=== PATIENT | female | born 1975 | race Caucasian/White ===

== ENCOUNTER 2018-10-29 19:12 | Emergency (ER) | payer MEDICAID, OTHER ==
[~2018-10-29] VITALS: Ht 167.6 cm; Wt 70.3 kg
--- NOTE | 2018-10-29 19:16 | NUR ---
PT AMBULATED TO ER BED 11
[2018-10-29 19:18] VITALS: BP 127/95
--- NOTE | 2018-10-29 19:24 | NUR ---
42 y/o F presented to ED wt c/o BLE numbness and tingling. AAOx4. Per pt, " my legs feel heavy and I can barely move them.". Able to move BLE extremties and feel touch sensation. denies pain. ERMD notified. Will continue to monitor.
[2018-10-29] MEDS ORDERED: NACL 0.9% 500 ML IV ONE (20:31)
[2018-10-29 20:55] LABS: BASOPHILS % (AUTO) 0.2 % (0.0-2.0); EOSINOPHILS % (AUTO) 0.2 % (0.0-4.0); HEMATOCRIT 37.8 % (36-48); HEMOGLOBIN 12.4 g/dL (12.0-16.0); LYMPHOCYTES % (AUTO) 28.1 % (20.5-51.1); MEAN CORPUSCULAR HEMOGLOBIN 30 pg (27-31); MEAN CORPUSCULAR HGB CONC 33 g/dL (33-37); MONOCYTES # (AUTO) 0.7 K/uL (0.8-1.0); MONOCYTES % (AUTO) 9.4 % (1.7-9.3); NEUTROPHILS # (AUTO) 4.4 K/uL (1.8-7.7); NEUTROPHILS % (AUTO) 62.1 % (42.2-75.2); PLATELET COUNT (AUTO) 259 K/uL (140-450); RED CELL DISTRIBUTION WIDTH 14.4 % (11.6-13.7); WHITE BLOOD COUNT (AUTO) 7.1 K/uL (4.8-10.8)
--- NOTE | 2018-10-29 21:05 | NUR ---
pt asleep. visible chest and fall. will continue to monitor.
[2018-10-29 21:14] LABS: ALBUMIN 3.4 g/dL (3.4-5.0); ANION GAP 9.5 (8-16); CARBON DIOXIDE 29.9 mmol/L (21-32); CREATININE 0.8 mg/dL (0.6-1.3); POTASSIUM 3.4 mmol/L (3.5-5.1)
[2018-10-29 21:29] LABS: TOTAL BILIRUBIN 0.1 mg/dL (0.0-1.0)
[2018-10-29 21:48] LABS: APPEARANCE,URINE CLEAR (CLEAR); BILIRUBIN,URINE NEGATIVE (NEGATIVE); BLOOD, URINE NEGATIVE (NEGATIVE); COLOR,URINE YELLOW (YELLOW); LEUKOCYTE ESTERASE ,URINE NEGATIVE (NEGATIVE); NITRITE, URINE NEGATIVE (NEGATIVE); UGLUCOSE NEGATIVE (NEGATIVE)
--- NOTE | 2018-10-29 23:05 | NUR ---
Pt asleep, chest rise and fall noted. VSS. Will continue to monitor.
--- NOTE | 2018-10-30 02:22 | NUR ---
Pt asleep. VSS. Will continue to monitor.
[2018-10-30 05:07] VITALS: BP 101/60
--- NOTE | 2018-10-30 05:07 | NUR ---
Patient discharged with v/s stable. Written and verbal after care instructions given and explained. Patient verbalized understanding. Ambulatory with steady gait. All questions addressed prior to discharge. Advised to follow up with PMD.
== END 2018-10-30 05:07 | disposition home or self-care (01) ==
LOC: MED 19:12
DX: R20.0 Anesthesia of skin (principal); Z59.0 Homelessness
CPT/HCPCS: 36415; 71045; 80053; 81003; 81025; 85025; 99284; J7030

== ENCOUNTER 2019-01-14 12:22 | Emergency (ER) | payer MEDICAID ==
[~2019-01-14] VITALS: Ht 167.6 cm; Wt 67.8 kg
--- NOTE | 2019-01-14 12:30 | NUR ---
CALLED PT NAME IN ER LOBBY, NO RESPONE, PT OUTSIDE ER LOBBY ARGUING WITH FRIEND AND SHE DOES NOT RESPOND TO ME WHEN I CALL HER NAME. WILL CALL PT AGAIN AT LATER TIME.
--- NOTE | 2019-01-14 12:38 | NUR ---
PT IS OUTSIDE OF ER LOBBY AT THIS TIME AND STATES THAT SHE DOES NOT WANT TO COME IN UNLESS HER FAMILY COMES WITH HER, HER FAMILY MEMBER STATES THAT HE DOES NOT WANT TO COME IN WITH HER. PT DOES NOT WANT TO BE SEEN AT THIS TIME.
[2019-01-14 13:00] VITALS: BP 152/101
--- NOTE | 2019-01-14 13:18 | NUR ---
DR ROMAN AT BEDSIDE FOR PT EVALUATION
--- NOTE | 2019-01-14 13:18 | NUR ---
43 Y FEMALE BIB FRIEND C/O EYE REDNESS X4 DAYS AND LT KNEE PAIN X7 YEARS. PT REPORTS SHE THINKS EYE REDNESS IS FROM LIVING ON [address] AND BEING UNABLE TO WASH HANDS. PT REPORTS KNEE PAIN IS INCREASING AND IT HAS STARTED TO LOCK AND SHE IS UNABLE TO MOVE WHEN KNEE LOCKS. +ROM. +CAP REFILL >3 SECONDS. PALPABLE PEDAL PULSES. PT DENIES PAIN AT THIS TIME. BP 152/101. PT AA0X4. PT VISABLY CRYING DURING DR MARQUEZ ASSESSMENT. BED IS DOWN, LOCKED, BED RAIL X 1. MEDHX:MENISCUS TEAR RX:DENIES
--- NOTE | 2019-01-14 13:25 | NUR ---
PT AMB TO RESTROOM WITH STEADY GAIT
[2019-01-14 13:40] LABS: APPEARANCE,URINE SL CLOUDY (CLEAR); BILIRUBIN,URINE NEGATIVE (NEGATIVE); BLOOD, URINE NEGATIVE (NEGATIVE); COLOR,URINE YELLOW (YELLOW); LEUKOCYTE ESTERASE ,URINE NEGATIVE (NEGATIVE); NITRITE, URINE NEGATIVE (NEGATIVE); UGLUCOSE NEGATIVE (NEGATIVE)
[2019-01-14 13:42] LABS: BASOPHILS % (AUTO) 0.4 % (0.0-2.0); EOSINOPHILS % (AUTO) 0.3 % (0.0-4.0); HEMATOCRIT 41.3 % (36-48); HEMOGLOBIN 13.5 g/dL (12.0-16.0); LYMPHOCYTES # (AUTO) 1.9 K/uL (2.5-16.5); LYMPHOCYTES % (AUTO) 29.1 % (20.5-51.1); MEAN CORPUSCULAR HEMOGLOBIN 30 pg (27-31); MEAN CORPUSCULAR HGB CONC 33 g/dL (33-37); MEAN CORPUSCULAR VOLUME 92.5 fL (80-94); MONOCYTES # (AUTO) 0.6 K/uL (0.8-1.0); MONOCYTES % (AUTO) 9.2 % (1.7-9.3); NEUTROPHILS # (AUTO) 3.9 K/uL (1.8-7.7); PLATELET COUNT (AUTO) 313 K/uL (140-450); RED BLOOD CELL COUNT(AUTO) 4.46 MIL/uL (4.20-5.40); WHITE BLOOD COUNT (AUTO) 6.4 K/uL (4.8-10.8)
[2019-01-14 13:52] LABS: BARBITURATE, URINE NEG. ng/ml (NEG <=200); BENZODIAZEPINE, URINE NEG. ng/mL (NEG <=200); CANNABINOID, URINE NEG. ng/mL (NEG <=50); COCAINE, URINE NEG. ng/mL (NEG <=300); OPIATE, URINE NEG. ng/mL (NEG <=2000); PHENCYCLIDINE SCREEN,URINE NEG. ng/mL (NEG <=25)
[2019-01-14 13:55] LABS: CARBON DIOXIDE 27.8 mmol/L (21-32); CREATININE 0.9 mg/dL (0.6-1.3); POTASSIUM 3.8 mmol/L (3.5-5.1)
[2019-01-14 14:03] LABS: RBC,URINE NONE SEEN /HPF (0-5); WBC,URINE 0-5 /HPF (0-5)
[2019-01-14 14:03] LABS: ALBUMIN 3.9 g/dL (3.4-5.0); TOTAL BILIRUBIN 0.4 mg/dL (0.0-1.0)
[2019-01-14] MEDS ORDERED: KETOROLAC 60 MG/2 ML VIAL IM ONE (14:15)
--- NOTE | 2019-01-14 14:19 | NUR ---
PT REFUSING TORADOL AT THIS TIME. DENIES ANY PAIN.
[2019-01-14 14:29] VITALS: BP 143/99
--- NOTE | 2019-01-14 14:29 | NUR ---
Patient discharged with v/s stable. Written and verbal after care instructions given and explained. Patient alert, oriented and verbalized understanding of instructions. Ambulatory with steady gait. All questions addressed prior to discharge. ID band removed. Patient advised to follow up with PMD. Rx of NAPROSYN given. Patient educated on indication of medication including possible reaction and side effects. Opportunity to ask questions provided and answered. PT GIVEN REFERRAL FOR ORTHOPEDICS FOR KNEE COMPLAINT. PATIENT INFORMED THAT HER URINE CAME BACK POSITIVE FOR METH. INSTRUCTED TO DISCONTINUE METH USE FOR BETTER HEALTH.
== END 2019-01-14 14:29 | disposition home or self-care (01) ==
LOC: MED 12:22
DX: S83.92XA Sprain of unspecified site of left knee, initial encounter (principal); F15.10 Other stimulant abuse, uncomplicated; X58.XXXA Exposure to other specified factors, initial encounter; Y93.89 Activity, other specified; Y92.89 Other specified places as the place of occurrence of the external cause; Y99.8 Other external cause status
CPT/HCPCS: 36415; 80053; 80305; 81001; 85025; 99283; J1885